=== PATIENT | female | born 1990 | race Caucasian/White ===

== ENCOUNTER 2017-03-05 16:03 | Inpatient (IN) | payer OTHER ==
[~2017-03-05] VITALS: Ht 165.1 cm; Wt 92.1 kg
[2017-03-05 17:06] LABS: HEMOGLOBIN 12.6 gm/dl (12.3-15.3); RED BLOOD COUNT 4.13 M/UL (4.00-5.10); WHITE BLOOD COUNT 10.8 K/UL (4.5-11.0)
[2017-03-07 03:15] LABS: HEMOGLOBIN 9.5 gm/dl (12.3-15.3)
[2017-03-08] MEDS ORDERED: COLACE 100MG C100 MG PO (11:43)
== END 2017-03-08 12:25 | disposition home or self-care (01) | DRG 766 ==
LOC: GENOP 16:03 → OB 16:20
PROVIDERS: ADMIT Obstetrics & Gynecology
PROC: 3E033VJ Introduction of Other Hormone into Peripheral Vein, Percutaneous Approach (ICD-10-PCS; 2017-03-06)
PROC: 0U7C7ZZ Dilation of Cervix, Via Natural or Artificial Opening (ICD-10-PCS; 2017-03-06)
PROC: 10D00Z1 Extraction of Products of Conception, Low, Open Approach (ICD-10-PCS; principal; 2017-03-06 18:06)
PROC: 3E0234Z Introduction of Serum, Toxoid and Vaccine into Muscle, Percutaneous Approach (ICD-10-PCS; 2017-03-07)
DX: O48.0 Post-term pregnancy (principal); Z3A.40 40 weeks gestation of pregnancy; Z37.0 Single live birth; O99.344 Other mental disorders complicating childbirth; F41.9 Anxiety disorder, unspecified; Z23 Encounter for immunization
CPT/HCPCS: 36415; 81001; 82800; 85014; 85018; 85025; 90715; C9113; J1580; J2274; J2405; J2590; J2765; J3010; J7050; J7120